=== PATIENT | male | born 2000 | race Caucasian/White ===

== ENCOUNTER 2025-03-02 00:13 | Emergency (ER) | payer MEDICAID ==
[~2025-03-02] VITALS: Ht 165.1 cm; Wt 116.1 kg
[2025-03-02 00:20] VITALS: O2SAT 97
[2025-03-02] MEDS: ACETAMINOPHEN 325MG TABLET PO ONE (01:17)
[2025-03-02 01:30] LABS: BASOPHILS % 0.4 % (0.0-2.0); EOSINOPHILS % 5.6 % (0.0-5.0); HEMATOCRIT. 41.5 % (42.0-52.0); HEMOGLOBIN. 13.7 g/dL (14.0-18.0); LYMPHOCYTES % 27.5 % (20.0-50.0); MEAN PLATELET VOLUME 8.4 fl (7.4-10.4); MONOCYTES % 7.5 % (2.0-8.0); NEUTROPHILS % 59.0 % (40.0-76.0); PLATELET 256 x1000/uL (130-400); RED BLOOD CELL COUNT 5.20 mill/uL (4.7-6.1); RED CELL DISTRIBUTION WIDTH 14.1 % (11.6-14.6)
[2025-03-02 01:42] LABS: CREATININE 0.7 mg/dL (0.6-1.3)
[2025-03-02 01:43] LABS: TROPONIN I HIGH SENSITIVITY < 4 ng/L (3.0-53); UREA NITROGEN BLOOD 12 mg/dL (9-23)
[2025-03-02 01:44] LABS: ASPARTATE AMINOTRANSFERASE 19 IU/L (<34)
[2025-03-02 01:45] LABS: BILIRUBIN DIRECT 0.2 mg/dL (<=3.0); BILIRUBIN TOTAL 0.4 mg/dL (0.1-1.0); PROTEIN TOTAL 7.5 g/dL (6.0-8.3)
[2025-03-02] MEDS ORDERED: ACET-2708 MT (01:56)
[2025-03-02 02:19] VITALS: BP 110/41; PULSE 54; RESP 14; TEMP 36.6; O2SAT 99
== END 2025-03-02 02:20 | disposition home or self-care (01) ==
LOC: ER 00:13
DX: R42 Dizziness and giddiness (principal); Z87.891 Personal history of nicotine dependence; Z20.822 Contact with and (suspected) exposure to COVID-19
CPT/HCPCS: 36415; 71045; 80048; 80076; 80320; 84484; 85025; 87426; 93005; 99285; G0480